=== PATIENT | male | born 1995 | race Caucasian/White ===

== ENCOUNTER 2016-07-18 22:30 | Emergency (ER) | payer OTHER ==
[~2016-07-18] VITALS: Ht 188 cm; Wt 75.7 kg
[2016-07-19 00:12] VITALS: BP 122/73
[2016-07-19] MEDS ORDERED: ILOTYCIN1 GM LEFT EYE (00:15)
== END 2016-07-19 00:18 | disposition home or self-care (01) ==
LOC: EME 22:30
PROC: 08C1XZZ Extirpation of Matter from Left Eye, External Approach (ICD-10-PCS; principal; 2016-07-18)
DX: T15.92XA Foreign body on external eye, part unspecified, left eye, initial encounter (principal); W20.8XXA Other cause of strike by thrown, projected or falling object, initial encounter
CPT/HCPCS: 99281; 99284